=== PATIENT | female | born 1955 | race Caucasian/White ===

== ENCOUNTER 2017-07-25 07:16 | Day surgery (SDC) | payer BC ==
[~2017-07-25] VITALS: Ht 160 cm; Wt 86.2 kg
[~2017-07-25 07:16] MED LIST: ASPIRIN325 MG PO; CALCIUM-MAGNES1 EAC5 PO; GABAPENTIN800 MG PO; HARD NAILS2500 MCG PO; HYDROCHLOROTHIA25 MG PO; KRILL OIL 3001 EACH PO; LEVOTHYROXINE175 MCG PO; MULTIVITAMINS1 EAC8 PO; OMEPRAZOLE20 MG PO; TRAZODONE HCL150 MG PO; VERAPAMIL ER180 MG PO; VITAMIN D35000 UNI1 PO; WELLBUTRIN XL150 MG PO; ZESTRIL40 MG PO
--- NOTE | 2017-07-25 08:55 | NUR ---
07/25/17 0855 Sharon Christiansen 0846 PATIENT ARRIVES TO PACU SLEEPING, ONLY AWAKENS WITH REPEATED VERBAL STIMULI. PATIENT NEEDS TO STIMULATION TO TAKE DEEP BREATHS, THEN BACK TO SLEEP. NC AT 3 LITERS. 0855 PATIENT CONTINUES TO SLEEP. NO LONGER REQUIRES CONTINUED STIMULATION TO DEEP BREATH. RESP EVEN AND UNLABORED, NC AT 3 LITERS. SATS 95%.
--- NOTE | 2017-07-25 10:45 | NUR ---
PT RESTING IN BED-ALERT, ORIENTED AND SUPPORTED BY HER DAUGHTER. PT HAS HAD A NUMBER OF SCOPES BEFORE, SEEMED COMFORTABLE. DECLINED PRAYER AT THIS TIME. STAFF IN TO CONTINUE PREPPING PT. WILL FOLLOW NEEDED
--- NOTE | 2017-07-25 17:10 | OR ---
[facility] [address], [place] [address] Signed DATE OF OPERATION: 07/25/2017 SURGEON: Keira Mendez MD COLONOSCOPY REPORT PREOPERATIVE DIAGNOSES: 1. Mother with history of colonic polyps in her 40s. 2. Constipation and diarrhea. POSTOPERATIVE DIAGNOSIS: A 4 mm polyp at 10 cm in rectum. PROCEDURE: Colonoscopy with hot biopsy. ESTIMATED BLOOD LOSS: None. 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 She was asked to see me for a colonoscopy. Her last colonoscopy was negative in 2003. However, her mother had colonic polyps removed as early as her 40s. I explained to Collins she really should come every 5 years for colonoscopy because of her family history. She told me she has a little constipation and diarrhea, but otherwise seems to be fine. I gave her a pamphlet on colonoscopy. We looked at that together along with the risks including, but not limited to gas bloating, crampy abdominal pain, bleeding, perforation, requiring surgery, and missed diagnosis. We also discussed the need for IV conscious sedation. She had expressed understanding and wished to proceed. PROCEDURE NOTE: Collins was taken into our endoscopy suite and placed in the left lateral decubitus position. She was given a total of 4 mg of Versed and 150 mcg of fentanyl to cover the case. A digital rectal exam was performed and this was unremarkable. The adult colonoscope was introduced and advanced all around into the cecum under direct visualization of camera without difficulty. Her prep was good. The scope was then slowly withdrawn. We did take pictures throughout for photodocumentation. Her entire colon was unremarkable. Just as we came into the top of the rectum, she had a small 4 mm polyp which we removed with the help of hot biopsy forceps. The scope was then retroflexed and there was no additional pathology noted above the anal canal. After Electronically Signed By: KEIRA MENDEZ MD 07/25/17 1710 PATIENT NAME: COLLINS NORMAN OPERATIVE REPORT DATE OF : 51 REPORT #: [id number] PHYSICIAN: KEIRA MENDEZ MD PCP: SHANTA BEJARANO PAC REPORT IS CONFIDENTIAL AND NOT TO BE RELEASED WITHOUT AUTHORIZATION [facility] [address], [place] [address] Signed this, the gas was suctioned out. The colonoscope removed. Collins tolerated the procedure quite well. RECOMMENDATIONS: I will see Collins back in my office in 7 to 14 days to review her results. She should consider a colonoscopy every 5 years due to her family history. MD JORDYN Alvarez/LUDAL /[id number] cc: Edward Bejarano Copies: ~ Electronically Signed By: KEIRA MENDEZ MD 07/25/17 1710 PATIENT NAME: COLLINS NORMAN OPERATIVE REPORT DATE OF : 51 REPORT #: [id number] PHYSICIAN: KEIRA MENDEZ MD PCP: SHANTA BEJARANO PAC REPORT IS CONFIDENTIAL AND NOT TO BE RELEASED WITHOUT AUTHORIZATION
== END 2017-07-25 09:20 | disposition home or self-care (01) ==
LOC: DS 07:16 → OPS 07:16 → DS 08:15 → OPS 08:15
PROVIDERS: Colon & Rectal Surgery
PROC: 0DBP8ZZ Excision of Rectum, Via Natural or Artificial Opening Endoscopic (ICD-10-PCS; principal; 2017-07-25 08:15)
DX: K62.1 Rectal polyp (principal); I10 Essential (primary) hypertension; E78.5 Hyperlipidemia, unspecified; E03.9 Hypothyroidism, unspecified; E11.9 Type 2 diabetes mellitus without complications; G43.009 Migraine without aura, not intractable, without status migrainosus; F32.9 Major depressive disorder, single episode, unspecified; Z88.8 Allergy status to other drugs, medicaments and biological substances; Z79.899 Other long term (current) drug therapy; Z83.71 Family history of colonic polyps; Z79.82 Long term (current) use of aspirin
CPT/HCPCS: 99153; G0500; J2250; J3010; J7120

== ENCOUNTER 2019-03-24 23:18 | Emergency (ER) | payer OTHER, MEDICARE ==
[~2019-03-24] VITALS: Ht 160 cm; Wt 93.0 kg
--- OUTSIDE RECORDS SUMMARY | 2019-03-24 23:20 | XMS ---
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 Dimas has no Care Guidelines for this patient. Suhas VISIT COUNT (12 MO.) 1 ANNY Rea TOTAL 1 NOTE: Visits indicate total known visits. ED/UCC VISIT TRACKING (12 MO.) 03/24/2019 23:19 ANNY Guevara OR TYPE: Emergency COMPLAINT: - FALL INPATIENT VISIT TRACKING (12 MO.) No inpatient visits to display in this time frame [email or web address]
[2019-03-24] MEDS ORDERED: ATORVASTATIN CA40 MG PO (23:42)
[2019-03-24] MEDS ORDERED: CYCLOBENZAPRINE10 MG PO (23:43)
[2019-03-24] MEDS ORDERED: NORCO 5-325 TA1 EACH PO (23:43)
== END 2019-03-25 01:36 | disposition home or self-care (01) ==
LOC: ED 23:18
DX: S16.1XXA Strain of muscle, fascia and tendon at neck level, initial encounter (principal); S00.83XA Contusion of other part of head, initial encounter; S80.02XA Contusion of left knee, initial encounter; S80.01XA Contusion of right knee, initial encounter; S69.92XA Unspecified injury of left wrist, hand and finger(s), initial encounter; E11.9 Type 2 diabetes mellitus without complications; I10 Essential (primary) hypertension; F32.9 Major depressive disorder, single episode, unspecified; Z87.891 Personal history of nicotine dependence; Z91.038 Other insect allergy status; Z88.8 Allergy status to other drugs, medicaments and biological substances; Z79.899 Other long term (current) drug therapy; Z79.82 Long term (current) use of aspirin; W01.0XXA Fall on same level from slipping, tripping and stumbling without subsequent striking against object, initial encounter
CPT/HCPCS: 70450; 70486; 72070; 72100; 72125; 73110; 73560; 99284-25

== ENCOUNTER 2019-05-15 05:50 | Day surgery (SDC) | payer OTHER, MEDICARE ==
[~2019-05-15] VITALS: Ht 160 cm; Wt 90.7 kg
[~2019-05-15 05:50] MED LIST changes: +ATORVASTATIN CA40 MG PO; +CYCLOBENZAPRINE10 MG PO; +METFORMIN HCL500 MG PO; +NORCO 5-325 TA1 EACH PO
[2019-05-15] MEDS ORDERED: HYDROCODON-ACE1 EA10 PO (08:08)
--- NOTE | 2019-05-15 08:21 | NUR ---
05/15/19 0821 Heidi Rodrigues 0812- PT ARRIVES TO PACU WITH HER EYES OPEN. PT REPORTS NO PAIN OR NAUSEA. RESP EVEN AND UNLABORED. OXYGEN SAT MID 90'S TO 100% ON 6L VIA MASK. 0818- ICE PACK PLACED TO PT'S LEFT HAND. 0821- OXYGEN TITRATED OFF.
--- NOTE | 2019-05-15 09:41 | NUR ---
PT IS ALERT, ORIENTED AND SUPPORTED BY HER DAUGHTER. PT IS CALM,SEEMS TO BE IN CONTROL. DECLINED PRAYER, WILL FOLLOW NEEDED
--- NOTE | 2019-05-18 07:14 | OR ---
[facility] [address], [place] [address] Signed DATE OF OPERATION: 05/15/2019 SURGEON: Chemo Wall MD PREOPERATIVE DIAGNOSIS: Trigger thumb, left. POSTOPERATIVE DIAGNOSIS: Trigger thumb, left. PROCEDURE PERFORMED: Trigger thumb release, left. EMAIL MARKETING SPECIALIST: None. ANESTHESIA: Alaina block. TOURNIQUET TIME: 20 minutes. BRIEF HISTORY: Collins is a 63-year-old female with progressive worsening of locking in her left thumb. Risks and benefits of operative versus injection were discussed with her, and she elected to proceed with surgery. DESCRIPTION OF PROCEDURE: Once consent was obtained, she was taken to the operating room. After adequate anesthesia, she was placed on operating table. All downside pressure points well padded. The left arm was prepped and draped in a standard sterile fashion. The A1 emelina was approached through a 1 cm incision in the thumb crease, carried through the skin and subcutaneous tissue. The digital nerve was carefully retracted and protected. The emelina was identified and dissected free of overlying soft tissue and under loupe magnification, it was released. It was noted to be quite thickened and indurated. The patient was then asked to move her thumb. She could fully flex fully, extend with no trouble. Wound was copiously irrigated and closed with 3-0 nylon, injected with 2 mL 0.25% plain Marcaine and dressed with bacitracin, Adaptic, 4 x 8's, and gauze. She tolerated the procedure well. All sponge, needle, and instrument counts were correct. Electronically Signed By: CHEMO WALL MD 05/18/19 0714 PATIENT NAME: COLLINS NORMAN OPERATIVE REPORT DATE OF : 51 REPORT #: [id number] PHYSICIAN: CHEMO WALL MD PCP: SHANTA BEJARANO PAC REPORT IS CONFIDENTIAL AND NOT TO BE RELEASED WITHOUT AUTHORIZATION [address] [place], [place] [address] Signed Chemo Wall MD BA/MODL /[id number] Copies: ~ Electronically Signed By: CHEMO WALL MD 05/18/19 0714 PATIENT NAME: COLLINS NORMAN OPERATIVE REPORT DATE OF : 51 REPORT #: [id number] PHYSICIAN: CHEMO WALL MD PCP: SHANTA BEJARANO PAC REPORT IS CONFIDENTIAL AND NOT TO BE RELEASED WITHOUT AUTHORIZATION
== END 2019-05-15 08:55 | disposition home or self-care (01) ==
LOC: DS 05:50 → OPS 05:50 → DS 06:45 → OPS 08:55
PROVIDERS: Specialist
PROC: 0LN80ZZ Release Left Hand Tendon, Open Approach (ICD-10-PCS; principal; 2019-05-15 06:45)
DX: M65.312 Trigger thumb, left thumb (principal); E11.9 Type 2 diabetes mellitus without complications; G47.33 Obstructive sleep apnea (adult) (pediatric); Z79.899 Other long term (current) drug therapy; Z99.89 Dependence on other enabling machines and devices; Z87.891 Personal history of nicotine dependence; Z79.84 Long term (current) use of oral hypoglycemic drugs
CPT/HCPCS: 01810; J0690; J1100; J1885; J2250; J2405; J2704; J2765; J3010; J7121

== ENCOUNTER 2021-01-25 06:00 | Day surgery (SDC) | payer MEDICARE ==
[~2021-01-25] VITALS: Ht 160 cm; Wt 92.0 kg
[~2021-01-25 06:00] MED LIST changes: +ASPIRIN81 MG PO; +CALCITONIN-SAL3.7 ML; +GABAPENTIN300 MG PO; +HYDROCODON-ACE1 EA10 PO; +ULTRAM50 MG PO
[2021-01-25] MEDS ORDERED: IMITREX50 MG PO (06:21)
--- NOTE | 2021-01-25 11:46 | NUR ---
01/25/21 1146 Sheets,Shahana 0930 PT ARRIVED TO PACU ON 6L VIA MASK AND ORAL AIRWAY IN PLACE. DECREASED O2 NOTED, AND O2 OXIMETER SWITCED TO NOSE. SHALLOW BREATHING WITH DECREASED RATE NOTED. PT NONAROUSABLE TO PAINFUL STIMULI. JAW THURST USED TO MAINTAIN AIRWAY. 0934 PT CONTINUES TO HAVE SWALLOW AND DECREASED RATE OF BREAHTING, STEREOPTIC PROJECTION TOPOGRAPHER AT BEDSIDE O2 INCREASED TO 15L VIA MASK. JAW THRUST MAINTAINED. 0940 BREATHING TREATMENT STARTED AND HOB INCREASED TO HIGH FOLWERS. NO CHANGE IN BREATHING. PT REMIANS NONAROUSBALE. O2 6L WITH BREAHTING TREATMENT. 0945 STEREOPTIC PROJECTION TOPOGRAPHER GIVING REVERSAL (SEE BLUE SHEET). STERNAL RUB USED AND PT REMAINS NONAROUSABLE. LUNGS CLEAR. O2 SAT IN MID 80S. 0950 BREAHTING TREATMENT STOPPED AND 15L NONREBREATHER STARTED. O2 REMAINS IN MID 80S. 0955 PT BOOSTED UP IN BED AND HOB INCREASED TO 90 DEGREES. JAW THRUST NO LONGER NEEDED TO MAINTAIN AIRWAY, ORAL AIRWAY REMAINS IN PLACE. RESP RATE 8-10 AND SHALLOW. COUGHING ENCOURAGED BUT PT UNABLE TO FOLLOW COMMANDS. 1016 PT OPENED HER EYES AND ORAL AIRWAY REMOVED, PT ABLE TO COUGH AND DEEP BREATH WHEN ASKED THEN FALLS RIGHT BACK TO SLEEP.
--- NOTE | 2021-01-25 13:46 | NUR ---
1335 PT BACK TO ROOM FROM DAY SURGERY FROM PACU. DAUGHTER AT BED SIDE, PT ON 4L OXYGEN VIA NASAL CANNULA TO MAIN SATS ABOVE 95%
--- NOTE | 2021-01-25 13:56 | NUR ---
PT EATING SUGAR FREE JELLO AND DRINKING DIET SPRITE, DENIES NAUSEA, DENIES PAIN TO ABDOMEN FROM SURGERY BUT COMPLAINS OF PAIN TO HER LOWER BACK AT 5/10 SHE HAS HAD CHRONIC BACK PAIN, PLACED A PILLOW BEHIND HER TO HELP WITH BACK PAIN.
--- NOTE | 2021-01-25 14:16 | NUR ---
OXYGEN TURNED DOWN TO 2L VIA NASAL CANNULA PT MAINTAINING SATS ABOVE 95%.
--- NOTE | 2021-01-25 14:18 | NUR ---
PT WANTED TO TAKE GABAPENTIN THAT SHE HAD IN HER PURSE FROM HER HOME MEDS, ADVISED NOT TO TAKE IT UNIL HER SATS ARE MORE STABLE.
--- NOTE | 2021-01-25 14:28 | NUR ---
PT REPORTS PAIN IS MORE IN ABDOMEN NOW AND NOT IN HER LOWER BACK, GAVE IBUPROFEN.
--- NOTE | 2021-01-25 14:56 | NUR ---
OXYGEN TURNED OFF PT SATS BETWEEN 91% AND 93%, WHEN SHE FALLS ASLEEP AND RELAXES SATS DROPS BELOW 90%. PT REPORTS THAT SHE USES A CPAP MACHINE AT HOME BUT IT IS CURRENTLY BROKEN AND SHE HAS NOT BEEN WEARING IT, ADVISED HER TO GET CPAP FIXED LAUREEN TO HELP HER SLEEP AND MAINTAIN OXYGEN LEVELS AT HOME. VALLEJO CATH REMOVED, 600ML OF BRIGHT YELLOW URINE IN VALLEJO BAG.
--- NOTE | 2021-01-25 15:41 | NUR ---
1530 PT UP TO BATHROOM WITH MINIMAL ASSIST, SHE WAS NOT ABLE TO VOID, HELPED HER BACK INTO BED, CALL LIGHT WITHIN REACH, DR ROGERS CALLED AND UPDATED ON HER PROGESS.
--- NOTE | 2021-01-25 16:35 | NUR ---
UP TO BATHROOM WITH 2 PERSON ASSIST. STEADY ON FEET WHILE UP. VOIDED 350ML OF BRIGHT YELLOW URINE. BACK IN ROOM GETTING DRESSED.
--- NOTE | 2021-01-25 16:37 | NUR ---
SPOKE WITH AND BLAKE TO [facility].
--- NOTE | 2021-01-25 21:06 | OR ---
[facility] [address], [place] [address] Signed DATE OF OPERATION: 01/25/2021 SURGEON: Violet Max MD SECURITY TECH: Vernon Ferguson MD. 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 PROCEDURE: Total laparoscopic hysterectomy with bilateral salpingo-oophorectomy and cystoscopy. ANESTHESIA: General ET. ESTIMATED BLOOD LOSS: 25 mL. DRAINS: Watt catheter. INDICATIONS AND FINDINGS: The patient is a 65-year-old female with a family history of BRCA mutation. She has a sister as well as a daughter with this. She has not been personally affected by cancer and has not had genetic screening, but must be an obligate carrier given her family history. She now desires risk reducing surgery. At the time of surgery, exam under anesthesia revealed a normal-size uterus. At the time of laparoscopy, uterus, ovaries and cervix were normal. The tubes had a prior tubal ligation. She did have omental adhesions down the center of her abdomen from the upper abdomen to the mid lower abdomen, though these did not interfere with the surgery. Also, the urethra was quite narrow and required a 12 Watt as the usual Watt could not be placed. DESCRIPTION OF PROCEDURE: The patient was prepped and draped in the dorsal lithotomy position. The Watt was placed, which eventually was a 12-Wolof with some difficulty. Clear urine was drained. Weighted speculum was then placed and the anterior lip of the cervix was visualized and Electronically Signed By: VIOLET MAX MD 01/25/21 2106 PATIENT NAME: COLLINS NORMAN OPERATIVE REPORT DATE OF : 51 REPORT #: [id number] PHYSICIAN: VIOLET MAX MD PCP: SHANTA BEJARANO PAC REPORT IS CONFIDENTIAL AND NOT TO BE RELEASED WITHOUT AUTHORIZATION [facility] [address], [place] [address] Signed grasped with a single-tooth tenaculum. The cavity was sounded to 7 cm. The endocervical canal was then dilated and the VCare was inserted and the balloon inflated at the fundus. The tenaculum and speculum removed and the cup was fitted over the cervix and a locking cap was fitted into place. Attention was then directed above. The infraumbilical area was injected with 0.5% Marcaine plain. An incision was made with the knife and each layer serially elevated and incised until the fascia was opened and identified. Stay sutures of 0 Vicryl were placed. The peritoneum was opened bluntly. There was some difficulty given the depth of her abdominal wall. The Kelly was then placed and the balloon inflated and tied into placed. Placement of the scope confirmed proper positioning. CO2 was then introduced into the abdomen under low pressures. The pelvis was evaluated and planned procedure appeared appropriate. Secondary ports were placed laterally. These areas were transilluminated, injected with the Marcaine, incision made with a knife and the trocars were placed under direct vision. The left side was a 5 mm port and the right with Veress needle followed by the expanding port. Following this, the LigaSure [place] device was used to serially coagulate and divide the infundibulopelvic ligament on the left. Following this, the 0 PDS EndoLoop was placed ligating the infundibulopelvic ligament for assurance of hemostasis. The broad ligament was then serially coagulated and divided until the round ligament was grasped and divided after coagulating. Following this, the anterior leaf of the peritoneum was incised allowing for development of a partial bladder flap. The peritoneum was taken down posteriorly as well. Following this, the uterine vessels were skeletonized and coagulated multiple times and divided. Further dissection was done both posteriorly and anteriorly allowing for visualization of the rim of the cup. Attention was then directed on the right side. Again, the infundibulopelvic ligament was serially coagulated and divided and the EndoLoop using the 0 PDS placed ensuring hemostasis. The broad ligament pedicle on the right was serially coagulated and divided until the round ligament was reached. The round ligament was serially coagulated and divided as well. The anterior leaf of the peritoneum was incised allowing for completion of the bladder flap. The peritoneum was taken down posteriorly as well. Following this, the uterine vessels on the right side were serially coagulated and divided. Further dissection was done both posteriorly and anteriorly. Attention was redirected to the left with a little bit more dissection and at that point, it appeared clear enough that the specimen could be removed. The Sonicision device was used to separate the specimen from the vaginal cuff. This was begun posteriorly and wrapped around on the left anteriorly and started again posteriorly and wrapped around on the right side and anteriorly allowing for completion. Following this, the specimen was removed vaginally intact. A glove with a wet lap tape was then inserted into the vagina allowing for reaccumulation of the pneumoperitoneum. Attention was directed above and the abdomen was copiously irrigated and inspected. There was a bleeding point near the left uterine vessels and this was controlled with the LigaSure device. Following this, the cuff was closed using the EndoStitch. It was begun at the patient's right uterosacral ligament taking care to incorporate the vaginal mucosa both Electronically Signed By: VIOLET MAX MD 01/25/21 6726 PATIENT NAME: COLLINS NORMAN OPERATIVE REPORT DATE OF : 51 REPORT #: [id number] PHYSICIAN: VIOLET MAX MD PCP: SHANTA BEJARANO PAC REPORT IS CONFIDENTIAL AND NOT TO BE RELEASED WITHOUT AUTHORIZATION [facility] [address] [place], [place] [address] Signed posteriorly and anteriorly and this was taken to the patient's left uterosacral ligament and then back to the [place]. Following this, the pelvis was re-evaluated and good hemostasis was noted. The instruments were removed from the abdomen after allowing as much CO2 as possible to escape. The fascia at the umbilicus was re-identified and closed with a running suture of 0 Vicryl. The stay sutures were tied across as well. The skin incisions were closed with subcuticular sutures of 3-0 Vicryl Rapide. Attention was directed down below and the vaginal pack was removed. The Watt catheter was removed and cystoscopy was done. She had received IV fluorescein. The bladder was evaluated using the cystoscope and there was no evidence of any injury to the bladder or any sutures. Both ureteral orifices were identified and free spill of urine was noted bilaterally, though it did take quite some time for the right ureter to express any urine. Following this, the procedure was complete. The bladder was drained and the Watt catheter replaced. All sponge and needle counts were correct. She tolerated the procedure well and was taken to the recovery room in good condition. MD ALYSSA GrierW/LUDAL /[id number] cc: MD Shanta Wright PAC Copies: VERNON FERGUSON MD ~ Electronically Signed By: VIOLET MAX MD 01/25/21 2106 PATIENT NAME: COLLINS NORMAN OPERATIVE REPORT DATE OF : 51 REPORT #: [id number] PHYSICIAN: VIOLET MAX MD PCP: SHANTA BEJARANO REPORT IS CONFIDENTIAL AND NOT TO BE RELEASED WITHOUT AUTHORIZATION
--- NOTE | 2021-01-27 11:15 | PATH ---
[facility] [address] [place], [place] [address] Signed SPECIMEN(S): A UTERUS, CERVIX, BILAT OVARIES AND TUBES SPECIMEN SOURCE: A. UTERUS, CERVIX, BILAT OVARIES AND TUBES CLINICAL HISTORY: History of BRCA mutation. TLH, BSO, cysto. FINAL PATHOLOGIC DIAGNOSIS: Uterus with bilateral fallopian tubes and ovaries, hysterectomy and bilateral salpingo-oophorectomy: - Inactive endometrium; no hyperplasia or neoplasia identified. - Cervix, with no significant pathologic changes. - Bilateral ovaries with no significant pathologic changes. - Bilateral fallopian tubes with paratubal cysts. BRP:cml:C2NR MICROSCOPIC EXAMINATION: Histologic sections of all submitted blocks are examined by light microscopy. These findings, together with the gross examination, support the pathologic diagnosis. GROSS DESCRIPTION: The specimen, labeled "KK," and designated on the requisition "cervix, uterus, bilateral ovaries (R and L), bilateral fallopian tubes, history BRCA mutation," is received in formalin and consists of a uterus with attached cervix and bilateral adnexa. The posterior cervical barrel is inked black and the anterior cervical barrel is inked blue. The uterus with attached cervix weighs 37.8 g and measures 6.8 x 4.6 x 2.2 cm. The uterine serosa is costa, smooth, and glistening. The ectocervical tissue is costa, smooth to finely wrinkled, and occupies a 2.5 x 2.2 cm area. The external os is oval, patent, and 0.8 cm in diameter. The internal os is patent and the cervical stroma is grossly unremarkable. The triangular endometrial cavity is slightly distorted and measures 3.5 x 2.1 cm. The costa endometrium is up to 0.1 cm thick without a discrete mass/lesion. The left adnexa weighs 4.1 g and is comprised of an intact ovary and a previously incised, partially absent fimbriated fallopian tube segment. The fallopian tube segment is costa-purple, 2.5 cm long, 0.7 cm in diameter, grossly unremarkable, and has a patent lumen. The PATIENT NAME: COLLINS NORMAN PATHOLOGY DATE OF : 51 REPORT #: [id number] PHYSICIAN: SHERON MENDOZA PCP: SHANTA BEJARANO PAC REPORT IS CONFIDENTIAL AND NOT TO BE RELEASED WITHOUT AUTHORIZATION [facility] [address] [place], [place] [address] Signed fallopian tube fimbria grossly appear intact and without blunting. The ovary is costa, smooth to finely wrinkled, 2.7 x 1.2 x 0.6 cm, and the ovarian stroma is grossly unremarkable. The right adnexa weighs 7.1 g and is comprised of an intact ovary and previously incised fimbriated fallopian tube segments. The fimbriated fallopian tube segment is 4.7 cm long, 0.5 cm in diameter, grossly unremarkable, and has a patent lumen. The ovary is costa, smooth to finely wrinkled, 3.2 x 1.5 x 0.8 cm, and the ovarian stroma is grossly unremarkable. Sign Installer sections are submitted as follows: A1 anterior posterior cervix A2 anterior uterine wall A3 posterior uterine wall A4-A8 left adnexa entirely submitted sequentially from proximal to distal A9-A13 right adnexa entirely, submitted sequentially proximal to distal AI (under the direct supervision of a pathologist) The Gross Description was prepared using a voice recognition system. The report was reviewed for accuracy; however, sound-alike word errors, addition and/or deletions may occur. If there is any question about this report, please contact Client Services. PERFORMING LABORATORY: The technical component was performed by [employer] [address] (Bellows Assembler: Heather Connors MD; CLIA# [id number]). [facility] [address] [place] [address] (CLIA# [id number]). Diagnostician: Jose Son MD Pathologist Electronically Signed 01/27/2021 Copies: ~ PATIENT NAME: COLLINS NORMAN PATHOLOGY DATE OF : 51 REPORT #: [id number] PHYSICIAN: SHERON MENDOZA PCP: SHANTA BEJARANO PAC REPORT IS CONFIDENTIAL AND NOT TO BE RELEASED WITHOUT AUTHORIZATION
== END 2021-01-25 16:45 | disposition home or self-care (01) ==
LOC: DS 06:00
PROVIDERS: ATTEND Obstetrics & Gynecology
PROC: 0UT94ZZ Resection of Uterus, Percutaneous Endoscopic Approach (ICD-10-PCS; principal; 2021-01-25 06:45)
PROC: 0UT24ZZ Resection of Bilateral Ovaries, Percutaneous Endoscopic Approach (ICD-10-PCS; 2021-01-25 06:45)
PROC: 0UT74ZZ Resection of Bilateral Fallopian Tubes, Percutaneous Endoscopic Approach (ICD-10-PCS; 2021-01-25 06:45)
DX: Z15.02 Genetic susceptibility to malignant neoplasm of ovary (principal); Z15.01 Genetic susceptibility to malignant neoplasm of breast; N83.8 Other noninflammatory disorders of ovary, fallopian tube and broad ligament; I10 Essential (primary) hypertension; K21.9 Gastro-esophageal reflux disease without esophagitis; E78.2 Mixed hyperlipidemia; E66.9 Obesity, unspecified; E89.0 Postprocedural hypothyroidism; E11.69 Type 2 diabetes mellitus with other specified complication; G47.33 Obstructive sleep apnea (adult) (pediatric); F32.A Depression, unspecified; F41.0 Panic disorder [episodic paroxysmal anxiety]; F40.240 Claustrophobia; G89.29 Other chronic pain; G43.009 Migraine without aura, not intractable, without status migrainosus; F10.11 Alcohol abuse, in remission; Z87.891 Personal history of nicotine dependence; Z79.84 Long term (current) use of oral hypoglycemic drugs; Z79.82 Long term (current) use of aspirin; Z88.6 Allergy status to analgesic agent; Z88.1 Allergy status to other antibiotic agents; Z91.030 Bee allergy status; Z98.1 Arthrodesis status; Z79.891 Long term (current) use of opiate analgesic; Z68.35 Body mass index [BMI] 35.0-35.9, adult
CPT/HCPCS: 80053; 83735; 84100; A9270; J0131; J0330; J0461; J1100; J1580; J1644; J1885; J2250; J2405; J2704; J2765; J3010; J7121

== ENCOUNTER 2021-02-03 00:18 | Emergency (ER) | payer MEDICARE ==
[~2021-02-03] VITALS: Ht 160 cm; Wt 90.3 kg
[~2021-02-03 00:18] MED LIST changes: +IMITREX50 MG PO
[2021-02-03] MEDS ORDERED: OXYCODONE HCL5 MG PO (01:33)
[2021-02-03] MEDS ORDERED: ONDANSETRON ODT8 MG PO (01:33)
[2021-02-03] MEDS ORDERED: CITROMA296 ML PO (07:21)
== END 2021-02-03 08:28 | disposition home or self-care (01) ==
LOC: ED 00:18
DX: K52.9 Noninfective gastroenteritis and colitis, unspecified (principal); K59.00 Constipation, unspecified; R33.9 Retention of urine, unspecified; E11.9 Type 2 diabetes mellitus without complications; I10 Essential (primary) hypertension; E78.5 Hyperlipidemia, unspecified; Z85.850 Personal history of malignant neoplasm of thyroid; Z91.038 Other insect allergy status; Z88.8 Allergy status to other drugs, medicaments and biological substances; Z79.899 Other long term (current) drug therapy; Z79.84 Long term (current) use of oral hypoglycemic drugs
CPT/HCPCS: 74177; 80053; 81001; 83605; 83690; 85025; 99284-25; J2270; J2405; J7030; J7121; Q9967

== ENCOUNTER 2022-01-09 14:29 | Emergency (ER) | payer OTHER, MEDICARE ==
[~2022-01-09] VITALS: Ht 152.4 cm; Wt 90.7 kg
[~2022-01-09 14:29] MED LIST changes: +CITROMA296 ML PO; +ONDANSETRON ODT8 MG PO; +OXYCODONE HCL5 MG PO
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
== END 2022-01-09 18:04 | disposition home or self-care (01) ==
LOC: ED 14:29
DX: S20.219A Contusion of unspecified front wall of thorax, initial encounter (principal); S13.9XXA Sprain of joints and ligaments of unspecified parts of neck, initial encounter; R51.9 Headache, unspecified; V89.2XXA Person injured in unspecified motor-vehicle accident, traffic, initial encounter; E11.9 Type 2 diabetes mellitus without complications; I10 Essential (primary) hypertension; E78.5 Hyperlipidemia, unspecified; Z88.6 Allergy status to analgesic agent; Z88.1 Allergy status to other antibiotic agents; Z91.030 Bee allergy status; Z79.899 Other long term (current) drug therapy
CPT/HCPCS: 36415; 70450; 71260; 72125; 80053; 85025; G0480; Q9967

== ENCOUNTER 2022-04-09 14:18 | Emergency (ER) | payer MEDICARE ==
[~2022-04-09] VITALS: Ht 160 cm; Wt 90.7 kg
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
== END 2022-04-09 15:33 | disposition home or self-care (01) ==
LOC: ED 14:18
DX: S80.02XA Contusion of left knee, initial encounter (principal); I10 Essential (primary) hypertension; E11.9 Type 2 diabetes mellitus without complications; E78.5 Hyperlipidemia, unspecified; Z91.030 Bee allergy status; Z88.8 Allergy status to other drugs, medicaments and biological substances; Z79.899 Other long term (current) drug therapy; Z79.82 Long term (current) use of aspirin; W10.9XXA Fall (on) (from) unspecified stairs and steps, initial encounter
CPT/HCPCS: 73560; 99283-25